=== PATIENT | female | born 1960 | race Caucasian/White ===

== ENCOUNTER 2017-05-13 13:24 | Outpatient (RCR) | payer BC ==
[~2017-05-13 13:24] MED LIST: NO HOME MEDICATIONS
== END 2017-05-13 14:46 | disposition home or self-care (01) ==
LOC: WSPT 13:24
DX: Z01.818 Encounter for other preprocedural examination (principal); M17.12 Unilateral primary osteoarthritis, left knee

== ENCOUNTER → 2017-05-20 | Outpatient (CLI) | payer BC ==
[2017-05-20 17:27] LABS: HIV 1/2 Antibodies Non-Reactive; HIV-1p24 Antigen Non-Reactive
== END ==
LOC: COL.LAB 16:38
PROVIDERS: Orthopaedic Surgery
DX: Z01.812 Encounter for preprocedural laboratory examination (principal); M17.12 Unilateral primary osteoarthritis, left knee

== ENCOUNTER 2017-08-25 09:45 | Outpatient (RCR) | payer BC | END 2017-08-27 | disposition home or self-care (01) | LOC: WSPT | DX: Z47.1 Aftercare following joint replacement surgery (principal); Z96.652 Presence of left artificial knee joint | CPT/HCPCS: G0283-GP ==